=== PATIENT | male | born 1970 | race Caucasian/White ===

== ENCOUNTER 2018-05-12 07:44 | Day surgery (SDC) | payer BC ==
[~2018-05-12 07:44] MED LIST: Buffered Lidocaine 0.9% SYRIN* 5 ML/SYR SYRINGE INTRADERM ONE; Lactated Ringers 1000 ML Bag* 1,000 ML IV SCH
[2018-05-12] MEDS ORDERED: ceFAZolin 2 GM PREMIX in ORs 2 GM/50 ML BAG IVPB ONE (08:22)
[2018-05-12] MEDS ORDERED: fentaNYL* 50 MCG/ML 2 ML VIAL (100 MCG VIAL) ONE (09:35)
[2018-05-12] MEDS ORDERED: Midazolam* 1 MG/ML 5 ML VIAL (5 MG) ONE (09:35)
[2018-05-12] MEDS ORDERED: Propofol* 10 MG/ML 20 ML BTL ONE ×3 (11:28→12:41)
[2018-05-12] MEDS ORDERED: Naloxone* 0.4 MG/ML 1 ML VIAL IV PRN (11:57)
[2018-05-12] MEDS ORDERED: Bupivacaine 0.25% SDV PF* 10 ML VIAL INJ ONE (13:43)
[2018-05-12] MEDS ORDERED: Lidocain 1% EPI 1:100,000 * 30 ML MDV ONE (13:43)
[2018-05-12 14:02] VITALS: BP 117/82
== END 2018-05-12 14:24 | disposition home or self-care (01) ==
LOC: OR 07:44
PROVIDERS: ATTEND Plastic Surgery
DX: C44.629 Squamous cell carcinoma of skin of left upper limb, including shoulder (principal); Q82.8 Other specified congenital malformations of skin; I10 Essential (primary) hypertension; J44.9 Chronic obstructive pulmonary disease, unspecified; Z72.0 Tobacco use
CPT/HCPCS: 88305; 88331; 88332; 88342; J0690; J2250; J2704; J3010; J3490